=== PATIENT | female | born 1990 | race Caucasian/White ===

== ENCOUNTER → 2019-07-08 | Outpatient (CLI) | payer OTHER | LOC: ULTRA 13:25 | DX: Z36.89 Encounter for other specified antenatal screening (principal); Z3A.12 12 weeks gestation of pregnancy ==

== ENCOUNTER → 2019-08-17 | Outpatient (CLI) | payer OTHER | LOC: ULTRA 13:19 | DX: O32.1XX0 Maternal care for breech presentation, not applicable or unspecified (principal); Z3A.18 18 weeks gestation of pregnancy ==

== ENCOUNTER → 2020-07-27 | Outpatient (CLI) | payer OTHER ==
[2020-07-27 10:22] LABS: CALCIUM 9.1 mg/dL (8.5-10.1); CREATININE 0.7 mg/dL (0.6-1.0); POTASSIUM 4.2 mmol/L (3.5-5.1); TOTAL BILIRUBIN 0.5 mg/dL (0.2-1.0); TOTAL PROTEIN 7.7 g/dL (6.4-8.2)
== END ==
LOC: LAB 09:35
PROVIDERS: ATTEND Obstetrics & Gynecology
DX: R16.0 Hepatomegaly, not elsewhere classified (principal); N88.8 Other specified noninflammatory disorders of cervix uteri